=== PATIENT | female | born 1950 | race Caucasian/White ===

== ENCOUNTER → 2017-04-11 | Outpatient (CLI) | payer MEDICARE ==
[~2017-04-11] MED LIST: ALEN70 PO; ALENDRONATE SOD35 MG PO; ASPI81CH PO; CALCAVITD PO; CARDIOSTEROL; CELE200 PO; CEPH500 PO; DOCU100 PO; ENOX120I SC; ESTMEDA; ESTMEDA PO; ETAN50I SC; FISH1000 PO; Flonase 0.05% N16 GM; HYDRA25 PO; Hair, Skin & N1 EACH PO; IBUP800 PO; LANS30EC PO; LEVFLO500 PO; LEVO750 PO; LOSHYD PO; LOSHYD100 PO; METTREX2.5 PO; Multivitamin1 EAC1 PO; Norco 5-325 Ta1 EACH PO; OSEL75CA PO; Omeprazole20 M1 PO; SIMPONI AR50 MG/4 ML IV; SIMPONI100 MG/1 M IV; VERA180ER PO; VERA240ER PO; VITACEL PO; WARF5 PO; [UNRECOGNIZED DRUG - OTHER] PO; [UNRECOGNIZED DRUG - REMARK]
[2017-04-13 12:38] LABS: HPV Genotype 16 Not Detected (NOTDET); HPV Genotype 18 Not Detected (NOTDET)
[2017-04-18 13:15] LABS: HPV High Risk Other Not Detected (NOTDET)
== END | disposition home or self-care (01) ==
LOC: LAB 16:09
PROVIDERS: Obstetrics & Gynecology
DX: Z91.89 Other specified personal risk factors, not elsewhere classified (principal)
CPT/HCPCS: 87624; G0123

== ENCOUNTER 2017-05-24 00:58 | Day surgery (SDC) | payer MEDICARE ==
[~2017-05-24 00:58] MED LIST changes: -ALENDRONATE SOD35 MG PO; -HYDRA25 PO; -LEVFLO500 PO; -OSEL75CA PO; -SIMPONI AR50 MG/4 ML IV; -VITACEL PO; -[UNRECOGNIZED DRUG - REMARK]
[2017-05-24] MEDS ORDERED: HYDRA25 PO (15:08)
[2017-05-24 15:45] LABS: BASOPHILS ABSOLUTE AUTO 0.05 K/mm3 (0.00-0.23); BASOPHILS PERCENT AUTO 1 % (0-2); EOSINOPHILS ABSOLUTE AUTO 0.47 K/mm3 (0.00-0.68); EOSINOPHILS PERCENT AUTO 6 % (0-6); Hematocrit 35.6 % (33.0-51.0); Hemoglobin 11.2 g/dL (11.5-16.0); IMMATURE GRAN ABSOLUTE AUTO 0.02 K/mm3 (0.00-0.10); IMMATURE GRAN PERCENT AUTO 0 % (0-1); LYMPHOCYTES ABSOLUTE AUTO 2.11 K/mm3 (0.84-5.20); LYMPHOCYTES PERCENT AUTO 27 % (21-46); MONOCYTES ABSOLUTE AUTO 0.45 K/mm3 (0.16-1.47); MONOCYTES PERCENT AUTO 6 % (4-13); Mean Corpuscular HGB 27.3 pg (26.0-34.0); Mean Corpuscular HGB Conc 31.5 g/dL (31.5-36.5); Mean Corpuscular Volume 87 fL (80-100); Mean Platelet Volume 8.5 fL (9.1-12.4); NEUTROPHILS ABSOLUTE AUTO 4.63 K/mm3 (1.96-9.15); NEUTROPHILS PERCENT AUTO 60 % (41-73); Platelet Count 357 K/mm3 (150-400); RDW Coefficient Variation 16.1 % (11.7-14.2); RDW Standard Deviation 50.4 fL (35.1-46.3); White Blood Cell Count 7.73 K/mm3 (4.00-11.30)
[2017-05-24 16:09] LABS: Alanine Aminotransfer (ALT/SGP 22 U/L (12-78); Albumin, Blood 3.4 g/dL (3.4-5.0); Albumin/Globulin Ratio 0.8 (0.8-1.8); Alk Phos 105 U/L (50-136); Anion Gap 8 mmol/L (6-16); Aspartate Aminotrans (AST/SGOT 11 U/L (12-37); Bilirubin, Total 0.3 mg/dL (0.1-1.0); Blood Urea Nitrogen 28 mg/dL (8-24); Bun/Creatinine Ratio 34.6 (12.0-20.0); CO2, Blood 25 mmol/L (21-32); Calcium, Blood 8.4 mg/dL (8.5-10.1); Chloride, Blood 105 mmol/L (98-108); Creatinine, Blood 0.81 mg/dL (0.40-1.00); Glomerular Filtration Rate >60 (60-); Glucose, Blood 138 mg/dL (70-99); Potassium, Blood 3.6 mmol/L (3.5-5.5); Sodium, Blood 138 mmol/L (136-145); Total Protein, Blood 7.4 g/dL (6.4-8.2)
[2017-08-28] MEDS ORDERED: SIMPONI AR50 MG/4 ML IV (09:20)
[2017-08-28] MEDS ORDERED: [UNRECOGNIZED DRUG - REMARK] (09:20)
[2017-08-28] MEDS ORDERED: OSEL75CA PO (09:20)
== END 2017-05-24 18:21 | disposition home or self-care (01) ==
LOC: ATC 00:58
PROVIDERS: Internal Medicine Rheumatology
DX: M06.9 Rheumatoid arthritis, unspecified (principal)
CPT/HCPCS: 36415; 80053; 85025; 85651; 96365; J1602

== ENCOUNTER 2017-06-24 16:05 | Emergency (ER) | payer MEDICARE ==
[~2017-06-24] VITALS: Ht 165.1 cm; Wt 108.9 kg
[~2017-06-24 16:05] MED LIST changes: +HYDRA25 PO
[2017-06-24 16:49] LABS: BASOPHILS ABSOLUTE AUTO 0.03 K/mm3 (0.00-0.23); BASOPHILS PERCENT AUTO 0 % (0-2); EOSINOPHILS PERCENT AUTO 3 % (0-6); Hematocrit 37.7 % (33.0-51.0); Hemoglobin 11.8 g/dL (11.5-16.0); IMMATURE GRAN ABSOLUTE AUTO 0.01 K/mm3 (0.00-0.10); IMMATURE GRAN PERCENT AUTO 0 % (0-1); LYMPHOCYTES ABSOLUTE AUTO 1.71 K/mm3 (0.84-5.20); LYMPHOCYTES PERCENT AUTO 22 % (21-46); MONOCYTES PERCENT AUTO 8 % (4-13); Mean Corpuscular HGB 27.1 pg (26.0-34.0); Mean Corpuscular HGB Conc 31.3 g/dL (31.5-36.5); Mean Corpuscular Volume 87 fL (80-100); Mean Platelet Volume 8.6 fL (9.1-12.4); NEUTROPHILS ABSOLUTE AUTO 5.11 K/mm3 (1.96-9.15); NEUTROPHILS PERCENT AUTO 67 % (41-73); Platelet Count 285 K/mm3 (150-400); RDW Coefficient Variation 16.6 % (11.7-14.2); RDW Standard Deviation 51.8 fL (35.1-46.3); Red Blood Cell Count 4.36 M/mm3 (3.80-5.20); White Blood Cell Count 7.66 K/mm3 (4.00-11.30)
[2017-06-24 17:09] LABS: Alanine Aminotransfer (ALT/SGP 20 U/L (12-78); Albumin, Blood 3.6 g/dL (3.4-5.0); Albumin/Globulin Ratio 0.8 (0.8-1.8); Alk Phos 94 U/L (50-136); Anion Gap 10 mmol/L (6-16); Aspartate Aminotrans (AST/SGOT 24 U/L (12-37); Bilirubin, Total 0.3 mg/dL (0.1-1.0); Blood Urea Nitrogen 25 mg/dL (8-24); Bun/Creatinine Ratio 28.1 (12.0-20.0); CO2, Blood 25 mmol/L (21-32); Calcium, Blood 8.7 mg/dL (8.5-10.1); Chloride, Blood 104 mmol/L (98-108); Creatinine, Blood 0.89 mg/dL (0.40-1.00); Globulin, Blood 4.4 g/dL (2.2-4.0); Glomerular Filtration Rate >60 (60-); Glucose, Blood 98 mg/dL (70-99); Potassium, Blood 3.9 mmol/L (3.5-5.5); Sodium, Blood 139 mmol/L (136-145); Troponin I <0.015 ng/mL (0.000-0.040)
[2017-06-24] MEDS ORDERED: ALENDRONATE SOD35 MG PO (18:37)
[2017-06-24] MEDS ORDERED: VITACEL PO (18:38)
[2017-06-24] MEDS ORDERED: CELE200 PO (18:38)
[2017-06-24] MEDS ORDERED: LEVFLO500 PO (19:02)
[2017-08-28] MEDS ORDERED: OSEL75CA PO (09:20)
[2017-08-28] MEDS ORDERED: SIMPONI AR50 MG/4 ML IV (09:20)
[2017-08-28] MEDS ORDERED: [UNRECOGNIZED DRUG - REMARK] (09:20)
== END 2017-06-24 19:50 | disposition home or self-care (01) ==
LOC: ER 16:05
PROVIDERS: Emergency Medicine
DX: J18.9 Pneumonia, unspecified organism (principal); I10 Essential (primary) hypertension; Z88.8 Allergy status to other drugs, medicaments and biological substances; Z79.899 Other long term (current) drug therapy; Z79.82 Long term (current) use of aspirin; Z86.711 Personal history of pulmonary embolism
CPT/HCPCS: 36415; 71046; 80053; 84484; 85025; 93005; 93010; 96360; 99283; J7030

== ENCOUNTER 2017-07-10 00:29 | Day surgery (SDC) | payer MEDICARE ==
[~2017-07-10 00:29] MED LIST changes: +ALENDRONATE SOD35 MG PO; +LEVFLO500 PO; +VITACEL PO
[2017-08-28] MEDS ORDERED: OSEL75CA PO (09:20)
[2017-08-28] MEDS ORDERED: [UNRECOGNIZED DRUG - REMARK] (09:20)
[2017-08-28] MEDS ORDERED: SIMPONI AR50 MG/4 ML IV (09:20)
== END 2017-07-10 11:16 | disposition home or self-care (01) ==
LOC: ATC 00:29
DX: M06.9 Rheumatoid arthritis, unspecified (principal)
CPT/HCPCS: 96365; J1602

== ENCOUNTER 2017-10-24 00:46 | Day surgery (SDC) | payer MEDICARE ==
[~2017-10-24 00:46] MED LIST changes: +OSEL75CA PO; +SIMPONI AR50 MG/4 ML IV; +[UNRECOGNIZED DRUG - REMARK]
== END 2017-10-24 23:16 | disposition home or self-care (01) ==
LOC: ATC 00:46
DX: M06.9 Rheumatoid arthritis, unspecified (principal); M81.0 Age-related osteoporosis without current pathological fracture; I10 Essential (primary) hypertension; M15.9 Polyosteoarthritis, unspecified
CPT/HCPCS: 96365; J1602

== ENCOUNTER 2018-04-03 00:09 | Day surgery (SDC) | payer MEDICARE | END 2018-04-03 22:49 | disposition home or self-care (01) | LOC: ATC 00:09 | DX: M06.9 Rheumatoid arthritis, unspecified (principal); Z79.899 Other long term (current) drug therapy | CPT/HCPCS: J1602 ==

== ENCOUNTER 2018-04-04 09:16 | Day surgery (SDC) | payer MEDICARE | END 2018-04-04 11:21 | disposition home or self-care (01) | LOC: ATC 09:16 | DX: M06.9 Rheumatoid arthritis, unspecified (principal); M85.80 Other specified disorders of bone density and structure, unspecified site; M15.9 Polyosteoarthritis, unspecified | CPT/HCPCS: 96365; J1602 ==

== ENCOUNTER 2018-05-22 00:06 | Day surgery (SDC) | payer MEDICARE ==
[2018-05-22] MEDS ORDERED: SIMPONI AR50 MG/4 ML IV (08:38)
== END 2018-05-22 09:44 | disposition home or self-care (01) ==
LOC: ATC 00:06
DX: M06.9 Rheumatoid arthritis, unspecified (principal); I10 Essential (primary) hypertension; M85.80 Other specified disorders of bone density and structure, unspecified site; Z79.899 Other long term (current) drug therapy
CPT/HCPCS: 96365; J1602

== ENCOUNTER 2018-07-09 00:27 | Day surgery (SDC) | payer MEDICARE | END 2018-07-09 11:36 | disposition home or self-care (01) | LOC: ATC 00:27 | DX: M06.9 Rheumatoid arthritis, unspecified (principal); M15.9 Polyosteoarthritis, unspecified; M85.80 Other specified disorders of bone density and structure, unspecified site; I10 Essential (primary) hypertension; Z79.899 Other long term (current) drug therapy; Z79.82 Long term (current) use of aspirin; Z88.8 Allergy status to other drugs, medicaments and biological substances | CPT/HCPCS: 96365; J1602 ==

== ENCOUNTER → 2018-09-24 | Outpatient (CLI) | payer MEDICARE ==
[~2018-09-24] MED LIST changes: +DIAZ5 PO; +OXYC15ER PO
== END | disposition home or self-care (01) ==
LOC: LAB SHORT 10:57 → LAB EV 10:57
DX: R35.0 Frequency of micturition (principal)
CPT/HCPCS: 87077; 87086; 87186

== ENCOUNTER 2018-10-15 00:11 | Day surgery (SDC) | payer MEDICARE ==
[~2018-10-15 00:11] MED LIST changes: -DIAZ5 PO; -OXYC15ER PO
[2018-10-15] MEDS ORDERED: DIAZ5 PO (09:23)
== END 2018-10-15 10:30 | disposition home or self-care (01) ==
LOC: ATC 00:11
DX: M06.9 Rheumatoid arthritis, unspecified (principal); M15.9 Polyosteoarthritis, unspecified; M85.80 Other specified disorders of bone density and structure, unspecified site; I10 Essential (primary) hypertension; Z79.899 Other long term (current) drug therapy; Z79.82 Long term (current) use of aspirin
CPT/HCPCS: 96365; J1602

== ENCOUNTER 2018-12-04 00:12 | Day surgery (SDC) | payer MEDICARE ==
[~2018-12-04 00:12] MED LIST changes: +DIAZ5 PO
[2018-12-04] MEDS ORDERED: OXYC15ER PO (10:53)
[2018-12-04] MEDS ORDERED: DIAZ5 PO (10:55)
== END 2018-12-04 11:45 | disposition home or self-care (01) ==
LOC: ATC 00:12
DX: M06.9 Rheumatoid arthritis, unspecified (principal); Z88.8 Allergy status to other drugs, medicaments and biological substances
CPT/HCPCS: 96365; J1602